=== PATIENT | male | born 1955 | race Caucasian/White ===

== ENCOUNTER → 2017-12-07 09:29 | Outpatient (CLI) | payer BC, SELFPAY ==
--- NOTE | 2017-12-07 09:29 | RAD_ITS ---
STUDY: X-RAY - PELVIS AND RIGHT HIP REASON FOR EXAM: Male, 62 years old. Right hip pain TECHNIQUE: Radiological exam, hip, unilateral, with pelvis when performed; 2 or 3 views. COMPARISON: 09/25/2017 FINDINGS: There is a non-specific bowel gas pattern. Normal visualized soft tissue structures. There is narrowing with cortical sclerosis and osteophyte formation of the sacroiliac joint consistent with degenerative osteoarthritic changes. Normal bilateral superior and inferior pubic rami. There are degenerative changes of the pubic symphysis with articular narrowing and sclerosis. Normal bilateral ischial tuberosities. Status post bilateral total hip arthroplasty. Intact metallic hardware. Stable 1 mm lucency along the acetabulum. Mild acetabular protrusion. Question off cortical irregularity along the medial acetabulum not seen on previous exam. RAD/Hip 2-3 Views with Pelvis IMPRESSION: Total hip arthroplasty with intact metallic hardware. Stable lucency along the acetabulum. There is question of acetabular irregularity along the central and medial aspect seen on the current oblique view, not visualized on prior exam. Electronically Signed: Trina Horne MD at 7:43 EDT , Service support ,
== END ==
PROVIDERS: Visit Provider Orthopaedic Surgery
DX: M16.11 Unilateral primary osteoarthritis, right hip (principal)
CPT/HCPCS: 73502

== ENCOUNTER → 2018-03-14 08:02 | Outpatient (CLI) | payer OTHER, SELFPAY ==
--- NOTE | 2018-03-14 08:05 | RAD_ITS ---
STUDY: X-RAY - PELVIS AND RIGHT HIP REASON FOR EXAM: Male, 62 years old. Routine follow-up 1 year post hip replacement. TECHNIQUE: Radiological exam, hip, unilateral, with pelvis when performed; 1 view COMPARISON: Prior radiographs of December 07, 2017 FINDINGS: There is a non-specific bowel gas pattern. Normal visualized soft tissue structures. Mild degenerative changes of the sacroiliac joints. Moderate degenerative changes of the symphysis pubis. Otherwise normal pelvis. Normal bilateral ischial tuberosities. Status post right hip total arthroplasty. The prosthesis remains located with no disruption or migration of the hardware. Stable 1 mm lucency around the acetabular component. Slight protrusio acetabuli. Stable slightly irregular cortical border of the medial acetabulum. The patient is also status post a total arthroplasty of the left hip which appears unchanged. RAD/Hip 2-3 Views with Pelvis IMPRESSION: Status post right total hip arthroplasty with no untoward bone, joint or hardware findings or changes since the prior exam. Electronically Signed: Kayla Wilkinson MD at 23:40 EDT , Service support ,
== END ==
PROVIDERS: Visit Provider Orthopaedic Surgery
DX: M16.11 Unilateral primary osteoarthritis, right hip (principal)
CPT/HCPCS: 73502